=== PATIENT | male | born 1995 | race Hispanic/Latino ===

== ENCOUNTER 2022-11-30 00:02 | Emergency (ER) | payer SELFPAY ==
--- OUTSIDE RECORDS SUMMARY | 2022-11-30 00:06 | XMS REPORT | Continuity of Care Document ---
:1995 Author Organization [facility] t Address [address] [place] [address] [place] [id number] Care Team Providers Name Role Phone Only, Adc Test Attending Clinician Unavailable Dez Root MD Attending Clinician DEZ ROOT Attending Clinician Unavailable Doctor Unassigned, [place] Attending Clinician Unavailable Lab, Pcp Covid Attending Clinician Unavailable Payers Payer Name Policy Type Policy Number Effective Date Expiration Date S ource Problems This patient has no known problems. Allergies, Adverse Reactions, Alerts Allergy Allergy Status Severity Reaction(s) Onset Inactive Treating Comm ents Source Name Type Date Date Clinician NO KNOWN Drug Active [facility] ALLERGIE Class ity of [facility] Social History Social Habit Start Date Stop Date Quantity Comments [facility] to [facility]2 Not sure [facility] [place] [facility] Smoking Status Start Date Stop Date Source Unknown if ever smoked [facility] Medications This patient has no known medications. Procedures Procedure Date / Time Performed Performing Clinician Sour e ASSIGNMENT OF BENEFITS 2019-12-11 20:28:58 Doctor Unassigned, No [facility] Encounters Start End Encounter Admission Attending Care Care Encounter Source Date/Time Date/Time Type Type Clinicians Facility Department ID 2019-12-11 2019-12-11 Laboratory Only, Adc Test [facility] [id number] Univers 15:29:16 15:44:16 Only [id number] [facility] [id number] [facility] [id number] [address] 2019-12-11 2019-12-11 Outpatient R DEZ ROOT [facility] [id number] Univers 15:15[facility]00 [facility]15[facility] 2019-12-11 2019-12-11 Orders Doctor WILBERT [id number] Univers 00:00:00 00:00:00 Only Unassigned, ANTHONY [id number] [place] [facility] [id number] Forrest fitz [id number] [address] 2019-12-11 2019-12-11 Telephone Lab, Pcp [facility] [id number] Univers 00:00:00 00:00:00 Covid PRIMARY [id number] it y of CARE [id number] Mark BERTRAND [id number] In dical [address] Results This patient has no known results.
[2022-11-30 00:51] LABS: Absolute Lymphocytes (CBC) 3.1 K/uL (0.7-4.9); Hematocrit 45.7 % (39.6-49.0); Lymphocytes % 46.7 % (15.3-44.8); MCV 87.4 fL (80-100); RBC Red Blood Cell Count 5.22 M/uL (4.33-5.43)
[2022-11-30 01:03] LABS: Bilirubin Direct 0.2 mg/dL (0-0.2); Bilirubin Indirect, Calculated 0.8 mg/dL (0.2-0.8); Magnesium 2.1 mg/dL (1.6-2.4); Potassium 3.8 mEq/L (3.5-5.1); Protein, Total 7.5 g/dL (6.4-8.2)
--- NOTE | 2022-11-30 01:14 | ER ---
Nurse's Notes [facility] Name: Jae Mike Age: 27 yrs Sex: Male : 1995 Arrival Date: 11/30/2022 Time: 00:02 Bed 7 Private MD: Diagnosis: Palpitations, anxiety Presentation: 11/30 00:13 Chief complaint: Patient states: I woke up out of a sleep and i was feeling weird, kd3 like my chest was tight and my heart was racing. I tried to get up and take a shower to calm my nerves and it didn't go away. Nothing like this has ever happened before. Coronavirus screen: Vaccine status: Patient reports being unvaccinated. Ebola Screen: No symptoms or risks identified at this time. Initial Sepsis Screen: Does the patient meet any 2 criteria? No. Patient's initial sepsis screen is negative. Does the patient have a suspected source of infection? No. Patient's initial sepsis screen is negative. Risk Assessment: Do you want to hurt yourself or someone else? Patient reports no desire to harm self or others. Onset of symptoms was November 30, 2022. 00:13 Method Of Arrival: Ambulatory kd3 00:13 Acuity: KARRI 3 kd3 Triage Assessment: 00:18 General: Appears uncomfortable, Behavior is cooperative, anxious. Pain: Complains of kd3 pain in chest. Cardiovascular: Patient's skin is warm and dry. Historical: - Allergies: 00:18 No Known Allergies; kd3 - Immunization history:: Adult Immunizations up to date. - Social history:: Smoking status: Reported history of juuling and/or vaping. Screenin:08 [facility] ED Fall Risk Assessment (Adult) History of falling in the last 3 months, ha1 including since admission No falls in past 3 months (0 pts) Confusion or Disorientation No (0 pts) Intoxicated or Sedated No (0 pts) Impaired Gait No (0 pts) Mobility Assist Device Used No (0 pt) Altered Elimination No (0 pt) Score/Fall Risk Level 0 - 2 = Low Risk Oriented to surroundings, Maintained a safe environment, Educated pt \T\ family on fall prevention, incl call for assistance when getting out of bed. Abuse screen: Denies threats or abuse. Denies injuries from another. Nutritional screening: No deficits noted. Tuberculosis screening: No symptoms or risk factors identified. Assessment: 00:07 General: Appears comfortable, Behavior is calm, cooperative. Pain: Complains of pain in ha1 chest Pain does not radiate. Pain currently is 4 out of 10 on a pain scale. Quality of pain is described as pressure, Pain began suddenly. Neuro: Level of Consciousness is awake, alert, obeys commands, Oriented to person, place, time, situation. Neuro:. Cardiovascular: Patient's skin is warm and dry. Cardiovascular: Heart tones S1 S2 present Rhythm is sinus rhythm. Respiratory: Airway is patent Respiratory effort is even, unlabored, Respiratory pattern is regular, symmetrical. GI: No signs and/or symptoms were reported involving the gastrointestinal system. Abdomen is flat, non-distended. Derm: Skin is pink, warm \T\ dry. Musculoskeletal: Circulation, motion, and sensation intact. Range of motion: intact in all extremities. 01:00 Reassessment: Patient and/or family updated on plan of care and expected duration. Pain ha1 level reassessed. Patient is alert, oriented x 3, equal unlabored respirations, skin warm/dry/pink. Patient denies pain at this time. Patient states feeling better. Patient states symptoms have improved. Vital Signs: 00:13 Pulse 84; Resp 20; Temp 97.9(O); Pulse Ox 100% on R/A; Weight 104.33 kg; Height 5 ft. 7 kd3 in. ; 00:19 BP 136 / 84; kd3 01:00 BP 109 / 69; Pulse 80; Resp 16 S; Pulse Ox 100% on R/A; ha1 00:13 Body Mass Index 36.02 (104.33 kg, 170.18 cm) kd3 ED Course: 00:05 Patient arrived in ED. mr 00:07 Jaxson Clay MD is Attending Physician. sp3 00:07 Patient has correct armband on for positive identification. Placed in gown. Bed in low ha1 position. Call light in reach. Side rails up X 1. 00:07 Client placed on continuous cardiac and pulse oximetry monitoring. NIBP monitoring ha1 applied. 00:07 Patient maintains SpO2 saturation greater than 95% on room air. ha1 00:15 Inserted saline lock: 20 gauge in right antecubital area, using aseptic technique. ha1 Blood collected. 00:18 Triage completed. kd3 00:18 Arm band placed on right wrist. kd3 00:19 Amirah Anderson, RN is Primary Nurse. kd3 00:25 XRAY Chest (1 view) In Process Unspecified. EDMS 00:33 Basic Metabolic Panel Sent. ha1 00:33 CBC with Diff Sent. ha1 00:33 LFT's Sent. ha1 00:33 Magnesium Sent. ha1 00:33 Troponin HS Sent. ha1 00:38 Merline Douglas, RN is Primary Nurse. ha1 01:29 No provider procedures requiring assistance completed. IV discontinued, intact, ha1 bleeding controlled, No redness/swelling at site. Pressure dressing applied. 01:31 Provided Education on: follow up with primary care.. ha1 Administered Medications: No medications were administered Medication: 01:31 VIS not applicable for this client. ha1 Outcome: 01:14 Discharge ordered by . sp3 01:30 Discharged to home ambulatory, with family. ha1 01:30 Condition: stable 01:30 Discharge instructions given to patient, family, Instructed on discharge instructions, follow up and referral plans. Demonstrated understanding of instructions, follow-up care. 01:32 Patient left the ED. ha1 Signatures: Dispatcher [employer] [facility] KokoSofia mr ValeVero RN RN lg3 Jaxson Clay MD MD sp3 Amirah Anderson, RN RN kd3 Merline Douglas, POLO RN ha1 Corrections: (The following items were deleted from the chart) 00:20 00:19 BP 136 / 84; lg3 lg3
--- NOTE | 2022-11-30 01:14 | EDPHYS ---
Physician Documentation [facility] Name: Jae Mike Age: 27 yrs Sex: Male : 1995 Arrival Date: 11/30/2022 Time: 00:02 Bed 7 Private MD: ED Physician Jaxson Clay HPI: 11/30 00:20 This 27 yrs old Male presents to ER via Ambulatory with complaints of Chest sp3 Tightness, Shaking. 00:20 27-year-old male with no significant past medical history presents with chief complaint sp3 chest tightness, palpitations and anxiety that awoke him from sleep approximately an hour and a half ago. Patient states he went to bed at 10 PM and awoke with the symptoms a little bit later. He denies prior episodes of similar symptoms, anxiety, any psychiatric illness he is, major stresses in his life, substance intake including caffeine, drugs or alcohol, or any other changes in his lifestyle. He denies headache, neck pain, shortness of breath, back pain, abdominal pain, nausea, vomiting, diarrhea, syncope, near syncope, focal neurodeficit, or any other signs or symptoms on ROS at this time. Symptoms have improved with time but he still feels anxious.. Historical: - Allergies: 00:18 No Known Allergies; kd3 - Immunization history:: Adult Immunizations up to date. - Social history:: Smoking status: Reported history of juuling and/or vaping. ROS: 00:23 Constitutional: Negative for fever, chills, and weight loss, Eyes: Negative for injury, sp3 pain, redness, and discharge, ENT: Negative for injury, pain, and discharge, Neck: Negative for injury, pain, and swelling, Respiratory: Negative for shortness of breath, cough, wheezing, and pleuritic chest pain, Abdomen/GI: Negative for abdominal pain, nausea, vomiting, diarrhea, and constipation, Back: Negative for injury and pain, MS/Extremity: Negative for injury and deformity, Skin: Negative for injury, rash, and discoloration, Neuro: Negative for headache, weakness, numbness, tingling, and seizure, Allergy/Immunology: Negative for hives, rash, and allergies, Endocrine: Negative for neck swelling, polydipsia, polyuria, polyphagia, and marked weight changes, Hematologic/Lymphatic: Negative for swollen nodes, abnormal bleeding, and unusual bruising. 00:23 All other systems are negative. Exam: 00:23 Constitutional: This is a well developed, well nourished patient who is awake, alert, sp3 and in no acute distress. Head/Face: Normocephalic, atraumatic. Eyes: Pupils equal round and reactive to light, extra-ocular motions intact. Lids and lashes normal. Conjunctiva and sclera are non-icteric and not injected. Cornea within normal limits. Periorbital areas with no swelling, redness, or edema. ENT: Nares patent. No nasal discharge, no septal abnormalities noted. External auditory canals are clear. Oropharynx with no redness, swelling, or masses, exudates, or evidence of obstruction, uvula midline. Mucous membranes moist. Neck: Trachea midline, no thyromegaly or masses palpated, and no cervical lymphadenopathy. Supple, full range of motion without nuchal rigidity, or vertebral point tenderness. No Meningismus. Chest/axilla: Normal chest wall appearance and motion. Nontender with no deformity. No lesions are appreciated. Cardiovascular: Regular rate and rhythm with a normal S1 and S2. No gallops, murmurs, or rubs. Normal PMI, no JVD. No pulse deficits. Respiratory: Lungs have equal breath sounds bilaterally, clear to auscultation and percussion. No rales, rhonchi or wheezes noted. No increased work of breathing, no retractions or nasal flaring. Abdomen/GI: Soft, non-tender, with normal bowel sounds. No distension or tympany. No guarding or rebound. No evidence of tenderness throughout. Back: No spinal tenderness. No costovertebral tenderness. Full range of motion. Skin: Warm, dry with normal turgor. Normal color with no rashes, no lesions, and no evidence of cellulitis. MS/ Extremity: Pulses equal, no cyanosis. Neurovascular intact. Full, normal range of motion. Neuro: Awake and alert, GCS 15, oriented to person, place, time, and situation. Cranial nerves II-XII grossly intact. Motor strength 5/5 in all extremities. Sensory grossly intact. Cerebellar exam normal. Normal gait. 00:23 ECG was reviewed by the Attending Physician. EKG demonstrates normal sinus rhythm at 64 bpm with normal intervals, normal QRS, normal axis, normal ST/T-segment's without evidence of acute ischemia. Vital Signs: 00:13 Pulse 84; Resp 20; Temp 97.9(O); Pulse Ox 100% on R/A; Weight 104.33 kg; Height 5 ft. 7 kd3 in. ; 00:19 BP 136 / 84; kd3 01:00 BP 109 / 69; Pulse 80; Resp 16 S; Pulse Ox 100% on R/A; ha1 00:13 Body Mass Index 36.02 (104.33 kg, 170.18 cm) kd3 MDM: 00:13 Patient medically screened. sp3 00:24 Data reviewed: vital signs, nurses notes, lab test result(s), EKG, radiologic studies. sp3 ED course: 27-year-old male with chest palpitations and tightness that awoke him from sleep. Symptoms are somewhat improved. Differential diagnosis includes anxiety, stress reaction, electrolyte abnormality, among others. I am not highly concerned for acute coronary syndrome, pulmonary embolism, thyroid spectrum, adrenergic spectrum, pulmonary embolism, pneumonia, sepsis, pneumothorax, aortic pathology including dissection or aneurysm, or any other critical findings at this time. Will obtain chest x-ray and laboratory values in addition to the EKG and treat conservatively with observation and general reassurance.. 01:13 ED course: Chest x-ray and all laboratory values are normal. Patient is more relaxed. sp3 We will safely discharge him home at this time with diagnosis palpitations/anxiety.. 11/30 00:13 Order name: Basic Metabolic Panel; Complete Time: 01: sp3 11/30 00:13 Order name: CBC with Diff; Complete Time: : sp3 11/30 00:13 Order name: LFT's; Complete Time: : sp3 11/30 00:13 Order name: Magnesium; Complete Time: : sp3 11/30 00:13 Order name: Troponin HS; Complete Time: : sp3 11/30 00:13 Order name: CK; Complete Time: : sp3 11/30 00:13 Order name: XRAY Chest (1 view) sp3 11/30 00:13 Order name: EKG; Complete Time: 00:14 sp3 11/30 00:13 Order name: Cardiac monitoring; Complete Time: 00:18 sp3 11/30 00:13 Order name: EKG - Nurse/Tech; Complete Time: 00:18 sp3 11/30 00:13 Order name: IV Saline Lock; Complete Time: 00:33 sp3 11/30 00:13 Order name: Labs collected and sent; Complete Time: : sp3 11/30 00:13 Order name: O2 Sat Monitoring; Complete Time: 00: sp3 Administered Medications: No medications were administered Disposition Summary: 11/30/22 01:14 Discharge Ordered Location: Home sp3 Condition: Stable sp3 Diagnosis - Palpitations, anxiety sp3 Followup: sp3 - With: Private Physician - When: Upon discharge from the Emergency Department - Reason: If symptoms return Discharge Instructions: - Discharge Summary Sheet sp3 - Palpitations sp3 Forms: - Medication Reconciliation Form sp3 - Thank You Letter sp3 - Antibiotic Education sp3 - Prescription Opioid Use sp3 - Patient Portal Instructions sp3 Signatures: Dispatcher [employer] Jaxson Sousa MD MD sp3 Amirah Anderson RN RN kd3
[2022-11-30 01:58] VITALS: TEMP 97.9; O2SAT 100
[2022-11-30 02:01] VITALS: BP 109/69
--- NOTE | 2022-11-30 13:10 | RAD REPORT ---
EXAM DESCRIPTION: CHEST PAIN. COMPARISON: None. TECHNIQUE: Single view AP chest radiograph(s). FINDINGS: The lungs are clear. No pulmonary infiltrate or edema identified. No pleural effusion. N o pneumothorax. Nonenlarged cardiomediastinal silhouette. No significant osseous abnormality. IMPRESSION: No acute cardiopulmonary abnormality identified by radiograph. Electronically signed by: Monet Frecnh MD 11/30/2022 12:35 AM CDT Due to temporary technical issues with the PACS/Fluency reporting system, reports are being signed by the in house radiologists without review as a courtesy to insure prompt reporting. The interpreting radiologist is fully responsible for the content of the report.
--- NOTE | 2022-11-30 13:16 | EKG ---
Test Date: 2022-11-30 Test Time: 00:14:54 Ostomy Nurse: ANISH MEASUREMENT RESULTS: Intervals: Rate: 64 SD: 180 QRSD: 98 QT: 360 QTc: 371 Maxwell: P: 45 SD: 180 QRS: 85 T: 26 INTERPRETIVE STATEMENTS: Normal sinus rhythm Normal ECG No previous ECG available for comparison Electronically Signed On 11-30-22 13:15:06 CDT by Gerard Ford
== END 2022-11-30 01:32 | disposition home or self-care (01) ==
LOC: ER 00:02
DX: R00.2 Palpitations (principal); F41.9 Anxiety disorder, unspecified
CPT/HCPCS: 36415; 71045; 80048; 80076; 82550; 83735; 84484; 85025; 93005; 99284

== ENCOUNTER 2023-12-28 09:19 | Emergency (ER) | payer SELFPAY ==
[2023-12-28] MEDS ORDERED: NA CHLORIDE 0.9% 1,000 ML ONE (09:41)
[2023-12-28 09:48] LABS: Absolute Basophils 0.1 K/uL (0-0.5); Absolute Eosinophils 0.1 K/uL (0-0.5); Absolute Monocytes 0.4 K/uL (0.1-1.3); Basophils % 1.1 % (0-1.3); Eosinophils % 1.8 % (0-4.4); Hematocrit 45.8 % (39.6-49.0); Lymphocytes % 35.6 % (15.3-44.8); MCH 30.4 pg (27.0-35.0); MCHC 34.9 g/dL (32.0-36.0); Monocytes % 7.5 % (3.3-12.3); Nucleated Red Blood Cells % 0.1 % (0-0); Platelets 231 thou/uL (152-406); RBC Red Blood Cell Count 5.26 M/uL (4.33-5.43); Red Cell Distribution Width 12.8 % (12.1-15.2)
[2023-12-28 10:03] LABS: Albumin 4.1 g/dL (3.4-5.0); Albumin/Globulin Ratio 1.2 (1.1-1.8); Anion Gap 6.9 mEq/L (5.0-15.0); Bilirubin Total 0.7 mg/dL (0.2-1.0); Globulin 3.3 g/dL (2.3-3.5); Potassium 3.9 mEq/L (3.5-5.1); Protein, Total 7.4 g/dL (6.4-8.2); Troponin High Sensitivity 3.5 pg/mL (<58.9)
--- NOTE | 2023-12-28 10:17 | RAD REPORT ---
EXAM DESCRIPTION: Janny Single View12/28/2023 10:10 am CLINICAL HISTORY: cough COMPARISON: 2022 FINDINGS: The lungs appear clear of acute infiltrate. The heart is normal size IMPRESSION: No acute abnormalities displayed
--- NOTE | 2023-12-28 10:51 | ER ---
Nurse's Notes [facility] Name: Jae Mike Age: 28 yrs Sex: Male : 1995 Arrival Date: 12/28/2023 Time: 09:19 Bed 5 Private MD: Diagnosis: Palpitations;Dizziness and giddiness;Heat exhaustion, unspecified Presentation: 12/27 09:33 Chief complaint: Patient states: was working outside cutting trees felt a chill all iw over his body, + chills, headache to left adventism. Coronavirus screen: At this time, the client does not indicate any symptoms associated with coronavirus-19. Ebola Screen: No symptoms or risks identified at this time. Initial Sepsis Screen: Does the patient meet any 2 criteria? No. Patient's initial sepsis screen is negative. Does the patient have a suspected source of infection? No. Patient's initial sepsis screen is negative. Risk Assessment: Do you want to hurt yourself or someone else? Patient reports no desire to harm self or others. Onset of symptoms was December 28, 2023. 09:33 Method Of Arrival: Ambulatory iw 09:33 Acuity: KARRI 3 iw Historical: - Allergies: 09:35 No Known Allergies; iw - Home Meds: 09:35 None [Active]; iw - PMHx: 09:35 Anxiety; iw - PSHx: 09:35 None; iw - Immunization history:: Adult Immunizations not up to date. - Infectious Disease History:: Denies. - Social history:: Smoking status: Reported history of juuling and/or vaping. - Family history:: not pertinent. Screenin:30 [facility] ED Fall Risk Assessment (Adult) History of falling in the last 3 months, rs5 including since admission No falls in past 3 months (0 pts) Confusion or Disorientation No (0 pts) Intoxicated or Sedated No (0 pts) Impaired Gait No (0 pts) Mobility Assist Device Used No (0 pt) Altered Elimination No (0 pt) Score/Fall Risk Level 0 - 2 = Low Risk Oriented to surroundings, Maintained a safe environment. Abuse screen: Denies threats or abuse. Nutritional screening: No deficits noted. Tuberculosis screening: No symptoms or risk factors identified. Assessment: 09:30 General: Appears in no apparent distress. uncomfortable, Behavior is cooperative, rs5 anxious. Pain: Complains of pain in head Pain currently is 3 out of 10 on a pain scale. Quality of pain is described as aching, Is continuous. Neuro: Level of Consciousness is awake, alert, obeys commands, Oriented to person, place, time, situation. Cardiovascular: Patient's skin is warm and dry. Respiratory: Airway is patent Respiratory effort is even, unlabored, Respiratory pattern is regular, symmetrical. GI: Abdomen is round non-distended, Abd is soft and non tender X 4 quads. : No signs and/or symptoms were reported regarding the genitourinary system. EENT: Denies blurred vision. Derm: Skin is intact, Skin is pink, warm \T\ dry. Musculoskeletal: Range of motion: intact in all extremities. 10:49 Reassessment: crackers and juice provided to pt for PO challenge per MD orders . rs5 10:58 Reassessment: to bedside for orthostatics . rs5 11:05 Reassessment: pt consumed crackers and juice provided, denies nausea/vomiting/ pain. rs5 Vital Signs: 09:33 BP 123 / 70; Pulse 68; Resp 16; Pulse Ox 98% on R/A; Weight 104.33 kg; Height 5 ft. 8 iw in. ; Pain 4/10; 09:49 BP 128 / 74; Pulse 73; Resp 17; Temp 97.8(O); Pulse Ox 98% on R/A; rs5 10:54 BP 114 / 72 Supine; Pulse 70; rs5 10:56 BP 116 / 74 Sitting; Pulse 73; rs5 10:58 BP 113 / 69 Standing; Pulse 75; rs5 09:33 Body Mass Index 34.97 (104.33 kg, 172.72 cm) iw 09:33 Pain Scale: Adult iw ED Course: 09:22 Patient arrived in ED. mr 09:22 Jose Antonio Muniz MD is Attending Physician. charli 09:30 Anthony Ordaz, RN is Primary Nurse. rs5 09:30 Patient has correct armband on for positive identification. Placed in gown. Bed in low rs5 position. Call light in reach. Side rails up X2. 09:35 Triage completed. iw 09:35 Arm band placed on. iw 09:41 Inserted saline lock: 20 gauge in right antecubital area, using aseptic technique. rs5 Blood collected. Flushed with 10 mL NS. 09:41 No provider procedures requiring assistance completed. rs5 09:46 EKG done, by ED staff, reviewed by Jose Antonio Muniz MD. cc6 10:12 Chest Single View XRAY In Process Unspecified. EDMS 11:06 IV discontinued, intact, bleeding controlled, No redness/swelling at site. Pressure rs5 dressing applied. Administered Medications: 09:45 Drug: NS 0.9% IV 1000 ml IV at 1 bolus Per protocol; 1000 mL bolus Route: IV; Rate: 1 rs5 bolus; Site: right antecubital; 11:00 Follow up: Response: No adverse reaction; IV Status: Completed infusion; IV Intake: rs5 1000ml Medication: 09:49 VIS not applicable for this client. rs5 Intake: 11:00 IV: 1000ml; Total: 1000ml. rs5 Outcome: 10:50 Discharge ordered by . charli 11:06 Discharged to home ambulatory, rs5 11:06 Condition: stable rs5 11:06 Discharge instructions given to patient, family, Instructed on discharge instructions, follow up and referral plans. 11:07 Patient left the ED. rs5 Signatures: Dispatcher [employer] EDIL Jose Antonio Muniz MD MD cha Rivera, Mary, Reg Reg mr Brit Gonzales RN POLO Anthony Ordaz RN RN rs5 Maru Delarosa, POLO RN cc6 Corrections: (The following items were deleted from the chart) 13:45 09:49 BP 128 / 74; Pulse 73bpm; Resp 17bpm; Pulse Ox 98% RA; rs5 rs5
--- NOTE | 2023-12-28 10:51 | EDPHYS ---
Physician Documentation [facility] Name: Jae Mike Age: 28 yrs Sex: Male : 1995 Arrival Date: 12/28/2023 Time: 09:19 Bed 5 Private MD: ED Physician Jose Antonio Muniz HPI: 12/27 10:44 This 28 yrs old Male presents to ER via Ambulatory with complaints of Fast charli heart rate, Dizziness, Vision Problem, Numbness. 10:44 The patient presents with dizziness, generalized weakness. Onset: The symptoms/episode charli began/occurred just prior to arrival. Context: occurred while the patient was. Modifying factors: The symptoms are alleviated by nothing, the symptoms are aggravated by nothing. Associated signs and symptoms: Pertinent positives: palpitations. Severity of symptoms: At their worst the symptoms were mild in the emergency department the symptoms have resolved and did so just prior to arrival. Patient's baseline: Neuro: alert and fully oriented. The patient has not experienced similar symptoms in the past. Historical: - Allergies: 09:35 No Known Allergies; iw - Home Meds: 09:35 None [Active]; iw - PMHx: 09:35 Anxiety; iw - PSHx: 09:35 None; iw - Immunization history:: Adult Immunizations not up to date. - Infectious Disease History:: Denies. - Social history:: Smoking status: Reported history of juuling and/or vaping. - Family history:: not pertinent. ROS: 10:44 Constitutional: Negative for fever, chills, and weight loss, Eyes: Negative for injury, charli pain, redness, and discharge, ENT: Negative for injury, pain, and discharge, Neck: Negative for injury, pain, and swelling, Cardiovascular: Negative for chest pain, palpitations, and edema, Respiratory: Negative for shortness of breath, cough, wheezing, and pleuritic chest pain, Abdomen/GI: Negative for abdominal pain, nausea, vomiting, diarrhea, and constipation, Back: Negative for injury and pain, : Negative for injury, bleeding, discharge, and swelling, MS/Extremity: Negative for injury and deformity, Skin: Negative for injury, rash, and discoloration, Neuro: Negative for headache, weakness, numbness, tingling, and seizure, Psych: Negative for depression, anxiety, suicide ideation, homicidal ideation, and hallucinations, Allergy/Immunology: Negative for hives, rash, and allergies, Endocrine: Negative for neck swelling, polydipsia, polyuria, polyphagia, and marked weight changes, Exam: 10:44 Constitutional: This is a well developed, well nourished patient who is awake, alert, charli and in no acute distress. Head/Face: Normocephalic, atraumatic. Eyes: Pupils equal round and reactive to light, extra-ocular motions intact. Lids and lashes normal. Conjunctiva and sclera are non-icteric and not injected. Cornea within normal limits. Periorbital areas with no swelling, redness, or edema. ENT: Nares patent. No nasal discharge, no septal abnormalities noted. Tympanic membranes are normal and external auditory canals are clear. Oropharynx with no redness, swelling, or masses, exudates, or evidence of obstruction, uvula midline. Mucous membranes moist. Neck: Trachea midline, no thyromegaly or masses palpated, and no cervical lymphadenopathy. Supple, full range of motion without nuchal rigidity, or vertebral point tenderness. No Meningismus. Chest/axilla: Normal chest wall appearance and motion. Nontender with no deformity. No lesions are appreciated. Cardiovascular: Regular rate and rhythm with a normal S1 and S2. No gallops, murmurs, or rubs. Normal PMI, no JVD. No pulse deficits. Respiratory: Lungs have equal breath sounds bilaterally, clear to auscultation and percussion. No rales, rhonchi or wheezes noted. No increased work of breathing, no retractions or nasal flaring. Abdomen/GI: Soft, non-tender, with normal bowel sounds. No distension or tympany. No guarding or rebound. No evidence of tenderness throughout. Back: No spinal tenderness. No costovertebral tenderness. Full range of motion. Male : Normal genitalia with no discharge or lesions. Skin: Warm, dry with normal turgor. Normal color with no rashes, no lesions, and no evidence of cellulitis. MS/ Extremity: Pulses equal, no cyanosis. Neurovascular intact. Full, normal range of motion. Neuro: Awake and alert, GCS 15, oriented to person, place, time, and situation. Cranial nerves II-XII grossly intact. Motor strength 5/5 in all extremities. Sensory grossly intact. Cerebellar exam normal. Normal gait. Psych: Awake, alert, with orientation to person, place and time. Behavior, mood, and affect are within normal limits. 10:44 ECG was reviewed by the Attending Physician. Vital Signs: 09:33 BP 123 / 70; Pulse 68; Resp 16; Pulse Ox 98% on R/A; Weight 104.33 kg; Height 5 ft. 8 iw in. ; Pain 4/10; 09:49 BP 128 / 74; Pulse 73; Resp 17; Temp 97.8(O); Pulse Ox 98% on R/A; rs5 10:54 BP 114 / 72 Supine; Pulse 70; rs5 10:56 BP 116 / 74 Sitting; Pulse 73; rs5 10:58 BP 113 / 69 Standing; Pulse 75; rs5 09:33 Body Mass Index 34.97 (104.33 kg, 172.72 cm) iw 09:33 Pain Scale: Adult iw MDM: 09:22 Patient medically screened. charli 10:48 Differential diagnosis: cardiac arrhythmia, generalized weakness, idiopathic dizziness, charli near-syncope. Data reviewed: vital signs, nurses notes, lab test result(s), EKG, radiologic studies. Consideration of Admission/Observation Escalation of care including admission/observation considered. I considered the following discharge prescriptions or medication management in the emergency department Medications were administered in the Emergency Department. See MAR. Independent interpretation of the following test(s) in the Emergency Department EKG: See my EKG interpretation above. Test considered but Not performed: CT: no ct head. Historians other than the Patient: Spouse/Significant Other: sig other well informed. Care significantly affected by the following chronic conditions: anxiety. Counseling: I had a detailed discussion with the patient and/or guardian regarding the historical points, exam findings, and any diagnostic results supporting the discharge/admit diagnosis, lab results, radiology results, the need for outpatient follow up, for definitive care, a family practitioner. 12/27 09:35 Order name: CBC with Diff; Complete Time: 10:43 [facility] 12/27 09:35 Order name: Comprehensive Metabolic Panel; Complete Time: 10:43 charli 12/27 09:35 Order name: Troponin HS; Complete Time: 10:43 12/27 09:35 Order name: CPK; Complete Time: 10:43 12/27 09:35 Order name: Chest Single View XRAY; Complete Time: 10:43 [facility] 12/27 09:35 Order name: EKG; Complete Time: 09:36 [facility] 12/27 09:35 Order name: EKG - Nurse/Tech; Complete Time: 09:40 [facility] 12/27 10:51 Order name: PO challenge; Complete Time: 11:03 [facility] 12/27 10:51 Order name: Orthostatics; Complete Time: 11:03 [facility] EC:44 Rate is 63 beats/min. Rhythm is regular. QRS [place] is Normal. NC interval is normal. QRS charli interval is normal. QT interval is normal. No Q waves. T waves are Normal. No ST changes noted. Clinical impression: NSR w/ Non-specific ST/T Changes and No evidence of ischemia. Interpreted by me. Reviewed by me. Administered Medications: 09:45 Drug: NS 0.9% IV 1000 ml IV at 1 bolus Per protocol; 1000 mL bolus Route: IV; Rate: 1 rs5 bolus; Site: right antecubital; 11:00 Follow up: Response: No adverse reaction; IV Status: Completed infusion; IV Intake: rs5 1000ml Disposition Summary: 12/28/23 10:50 Discharge Ordered Notes: Location: Home charli Problem: new charli Symptoms: have improved charli Condition: Stable charli Diagnosis - Palpitations charli - Dizziness and giddiness charli - Heat exhaustion, unspecified charli Followup: charli - With: Private Physician - When: 2 - 3 days - Reason: Recheck today's complaints, Continuance of care, Re-evaluation by your physician Discharge Instructions: - Discharge Summary Sheet charli - Dizziness charli - Palpitations charli - Heat Exhaustion charli - Palpitations, [id number] charli - Dizziness, [id number] charli - Preventing Heat Exhaustion, Adult charli Forms: - Medication Reconciliation Form charli - Antibiotic Education charli - Prescription Opioid Use charli - Patient Portal Instructions charli - Leadership Thank You Letter charli Signatures: Dispatcher [employer] EDJose Antonio Guadarrama MD MD cha Williams, Irene RN RN Anthony Cruz RN RN rs5 Corrections: (The following items were deleted from the chart) 09:36 09:36 Chest Single View+RAD.RAD.BRZ ordered. EDMS EDMS
[2023-12-28 11:24] VITALS: O2SAT 98
[2023-12-28 11:30] VITALS: BP 113/69
== END 2023-12-28 11:07 | disposition home or self-care (01) ==
LOC: ER 09:19
DX: T67.5XXA Heat exhaustion, unspecified, initial encounter (principal); X30.XXXA Exposure to excessive natural heat, initial encounter; Y93.H2 Activity, gardening and landscaping; R00.2 Palpitations; R42 Dizziness and giddiness; F17.290 Nicotine dependence, other tobacco product, uncomplicated
CPT/HCPCS: 36415; 71045; 80053; 82550; 84484; 85025; 93005; 96360; 99284; J7030

== ENCOUNTER 2024-09-10 23:58 | Emergency (ER) | payer OTHER, SELFPAY ==
[2024-09-11 00:59] LABS: PT Prothrombin Time 12.3 SECONDS (10-13.0); Protime INR 1.08
[2024-09-11 01:01] LABS: Absolute Basophils 0.1 K/uL (0-0.5); Absolute Eosinophils 0.1 K/uL (0-0.5); Absolute Lymphocytes (CBC) 2.4 K/uL (0.7-4.9); Absolute Monocytes 0.5 K/uL (0.1-1.3); Basophils % 0.9 % (0-1.3); Hematocrit 46.9 % (39.6-49.0); Hemoglobin 16.8 g/dL (13.6-17.9); Lymphocytes % 39.8 % (15.3-44.8); MCH 30.7 pg (27.0-35.0); MCHC 35.9 g/dL (32.0-36.0); MCV 85.7 fL (80-100); MPV 8.7 fL (7.6-11.3); Monocytes % 7.5 % (3.3-12.3); Neutrophils % 49.8 % (41.7-73.7); Nucleated Red Blood Cells % 0.3 % (0-0); Platelets 206 thou/uL (152-406); RBC Red Blood Cell Count 5.47 M/uL (4.33-5.43); Red Cell Distribution Width 12.8 % (12.1-15.2)
[2024-09-11 01:38] LABS: Albumin/Globulin Ratio 1.3 (1.1-1.8); Anion Gap 7.3 mEq/L (5.0-15.0); Bilirubin Direct 0.3 mg/dL (0-0.2); Bilirubin Indirect, Calculated 0.8 mg/dL (0.2-0.8); Bilirubin Total 1.1 mg/dL (0.2-1.0); Globulin 3.1 g/dL (2.3-3.5); Magnesium 2.1 mg/dL (1.6-2.4); Potassium 3.3 mEq/L (3.5-5.1); Protein, Total 7.1 g/dL (6.4-8.2); Thyroid Stimulating Hormone 2.86 uIU/mL (0.358-3.740); Troponin High Sensitivity 6.2 pg/mL (<58.9)
--- NOTE | 2024-09-11 02:19 | ER ---
Nurse's Notes [facility] Name: Jae Mike Age: 29 yrs Sex: Male : 1995 Arrival Date: 09/10/2024 Time: 23:58 Bed 5 Private MD: Diagnosis: Chest pain, unspecified;Noncardiac chest pain Presentation: 09/11 00:36 Chief complaint: Patient states: c/o intermittent chest tightness and palpitations, L al5 arm, and L leg numbness and tingling starting at [id number] this morning. Coronavirus screen: At this time, the client does not indicate any symptoms associated with coronavirus-19. Ebola Screen: No symptoms or risks identified at this time. Initial Sepsis Screen: Does the patient meet any 2 criteria? No. Patient's initial sepsis screen is negative. Does the patient have a suspected source of infection? No. Patient's initial sepsis screen is negative. Risk Assessment: Do you want to hurt yourself or someone else? Patient reports no desire to harm self or others. Onset of symptoms was September 11, 2024. 00:36 Method Of Arrival: Ambulatory al5 00:36 Acuity: KARRI 2 al5 Triage Assessment: 00:35 General: Appears in no apparent distress. comfortable, Behavior is calm, cooperative. al5 Pain: Denies pain. EENT: No signs and/or symptoms were reported regarding the EENT system. Neuro: Level of Consciousness is awake, alert, obeys commands, Oriented to person, place, time, situation. Cardiovascular: Reports intermittent chest tightness Capillary refill < 3 seconds Patient's skin is warm and dry. Rhythm is sinus rhythm. Respiratory: Airway is patent Respiratory effort is even, unlabored, Respiratory pattern is regular, symmetrical. GI: No signs and/or symptoms were reported involving the gastrointestinal system. : No signs and/or symptoms were reported regarding the genitourinary system. Derm: Skin is intact, is healthy with good turgor, Skin is pink, warm \T\ dry. normal. Musculoskeletal: No signs and/or symptoms reported regarding the musculoskeletal system. Historical: - Allergies: 00:35 No Known Allergies; al5 - PMHx: 00:35 Anxiety; al5 - PSHx: 00:35 None; al5 - Immunization history:: Adult Immunizations up to date, Client reports having NOT received the Covid vaccine. Flu vaccine is not up to date. - Infectious Disease History:: Denies. - Social history:: Smoking status: Reported history of juuling and/or vaping. - Family history:: not pertinent. Screenin:39 [facility] ED Fall Risk Assessment (Adult) History of falling in the last 3 months, al5 including since admission No falls in past 3 months (0 pts) Confusion or Disorientation No (0 pts) Intoxicated or Sedated No (0 pts) Impaired Gait No (0 pts) Mobility Assist Device Used No (0 pt) Altered Elimination No (0 pt) Score/Fall Risk Level 0 - 2 = Low Risk Oriented to surroundings, Maintained a safe environment, Hourly rounding (assess needs \T\ fall precautionary measures) done. Abuse screen: Denies threats or abuse. Denies injuries from another. Nutritional screening: No deficits noted. Tuberculosis screening: No symptoms or risk factors identified. Assessment: 00:39 Reassessment: see triage assessment. Pain: Pain does not radiate. Pain began today. al5 02:27 Reassessment: Patient appears in no apparent distress at this time. Patient and/or al5 family updated on plan of care and expected duration. Pain level reassessed. Patient is alert, oriented x 3, equal unlabored respirations, skin warm/dry/pink. Patient states feeling better. Patient states symptoms have improved. Vital Signs: 00:36 BP 132 / 77; Pulse 64; Resp 18; Temp 97.8; Pulse Ox 96% on R/A; Weight 106.14 kg; al5 Height 5 ft. 8 in. ; 01:00 BP 109 / 66; Pulse 60; Resp 17; Pulse Ox 96% ; al5 01:00 BP 109 / 66; Pulse 61; Resp 17; Pulse Ox 96% ; al5 01:30 BP 116 / 67; Pulse 56; Resp 17; Pulse Ox 94% ; al5 02:00 BP 108 / 62; Pulse 63; Resp 14; Pulse Ox 95% ; al5 00:36 Body Mass Index 35.58 (106.14 kg, 172.72 cm) al5 [place] Coma Score: 02:08 Eye Response: spontaneous(4). Motor Response: obeys commands(6). Verbal Response: sp4 oriented(5). Total: 15. ED Course: 00:00 Patient arrived in ED. jj6 00:05 Joe Kim MD is Attending Physician. sp4 00:30 EKG done, by agriculture laboratory technician. reviewed by Joe Kim MD. af3 00:35 Marilee Fontaine, RN is Primary Nurse. al5 00:36 Arm band placed on right wrist. Patient placed in the treatment room, in view of staff al5 members, on manager cardiac, on pulse oximetry. 00:38 Triage completed. al5 00:38 No provider procedures requiring assistance completed. Patient maintains SpO2 al5 saturation greater than 95% on room air. 00:38 Patient has correct armband on for positive identification. Bed in low position. Call al5 light in reach. Side rails up X2. Provided Education on: plan of care. Client placed on continuous cardiac and pulse oximetry monitoring. NIBP monitoring applied. playground monitor on. Pulse ox on. 00:39 Basic Metabolic Panel Sent. vk 00:39 CBC with Diff Sent. vk 00:39 LFT's Sent. vk 00:40 Magnesium Sent. vk 00:40 NT PRO-BNP Sent. vk 00:40 PT-INR Sent. vk 00:40 Troponin HS Sent. vk 00:40 Initial lab(s) drawn, by me, sent to lab. Inserted saline lock: 20 gauge in right vk antecubital area, using aseptic technique. Blood collected. Flushed with 10 mL NS. 00:59 XRAY Chest (1 view) In Process Unspecified. EDMS 02:17 Gerard Ford MD is Referral Physician. sp4 02:19 IV discontinued, intact, bleeding controlled, No redness/swelling at site. Pressure al5 dressing applied. Administered Medications: No medications were administered Medication: 00:39 VIS not applicable for this client. al5 Outcome: 02:18 Discharge ordered by . sp4 02:20 Discharged to home ambulatory, al5 02:20 Condition: good 02:20 Discharge instructions given to patient, Instructed on discharge instructions, follow up and referral plans. Demonstrated understanding of instructions, follow-up care, 02:37 Patient left the ED. al5 Signatures: Dispatcher [employer] EDGA Geovanna Lamas jj6 Joe Kim MD MD sp4 Karin Hopper vk Marilee Fontaine, RN RN al5 Kerrie Ruiz af3 Corrections: (The following items were deleted from the chart) 00:45 00:40 T4 FREE+C.LAB.KARISZ drawn and sent. vk EDMS 00:45 00:40 THYROID STIMULAT HORMONE+C.LAB.BRZ drawn and sent. vk EDMS
--- NOTE | 2024-09-11 02:19 | EDPHYS ---
Physician Documentation [facility] Name: Jae Mike Age: 29 yrs Sex: Male : 1995 Arrival Date: 09/10/2024 Time: 23:58 Bed 5 Private MD: ED Physician Joe Kim HPI: 09/11 00:05 This 29 yrs old Male presents to ER via Unassigned with complaints of Chest sp4 Tightness. 02:08 29-year-old male presents with acute onset of chest tightness at work in the afternoon..sp4 Historical: - Allergies: 00:35 No Known Allergies; al5 - PMHx: 00:35 Anxiety; al5 - PSHx: 00:35 None; al5 - Immunization history:: Adult Immunizations up to date, Client reports having NOT received the Covid vaccine. Flu vaccine is not up to date. - Infectious Disease History:: Denies. - Social history:: Smoking status: Reported history of juuling and/or vaping. - Family history:: not pertinent. ROS: 02:08 Constitutional: Negative for fever, chills, and weight loss, positive for chest sp4 tightness 02:08 All other systems are negative, Exam: 02:08 Constitutional: This is a well developed, well nourished patient who is awake, alert, sp4 and in no acute distress. Head/Face: Normocephalic, atraumatic. Eyes: Pupils equal round and reactive to light, extra-ocular motions intact. Lids and lashes normal. Conjunctiva and sclera are not injected. Cornea within normal limits. Periorbital areas with no swelling, redness, or edema. ENT: Nares patent. No nasal discharge, no septal abnormalities noted. Tympanic membranes are normal and external auditory canals are clear. Oropharynx with no redness, swelling, or masses, exudates, or evidence of obstruction, uvula midline. Mucous membranes moist. Neck: Trachea midline, no thyromegaly or masses palpated, and no cervical lymphadenopathy. Supple, full range of motion without nuchal rigidity, or vertebral point tenderness. Chest/axilla: Normal chest wall appearance and motion. Nontender with no deformity. No lesions are appreciated. Cardiovascular: Regular rate and rhythm with a normal S1 and S2. No gallops, murmurs, or rubs. Normal PMI, no JVD. No pulse deficits. Respiratory: Lungs have equal breath sounds bilaterally, clear to auscultation and percussion. No rales, rhonchi or wheezes noted. No increased work of breathing, no retractions or nasal flaring. Abdomen/GI: Soft, with normal bowel sounds. No distension or tympany. No guarding or rebound. No evidence of tenderness throughout. Back: No spinal tenderness. No costovertebral tenderness. Skin: Warm, dry with normal turgor. Normal color with no rashes, no lesions, and no evidence of cellulitis. MS/ Extremity: Pulses equal, no cyanosis. Neurovascular intact. Full, normal range of motion. Neuro: Awake and alert, GCS 15, oriented to person, place, time, and situation. Cranial nerves II-XII grossly intact. Motor strength 5/5 in all extremities. Sensory grossly intact. Psych: Awake, alert, with orientation to person, place and time. Behavior, mood, and affect are within normal limits 02:08 ECG was reviewed by the Attending Physician. EKG at 0025 Vital Signs: 00:36 BP 132 / 77; Pulse 64; Resp 18; Temp 97.8; Pulse Ox 96% on R/A; Weight 106.14 kg; al5 Height 5 ft. 8 in. ; 01:00 BP 109 / 66; Pulse 60; Resp 17; Pulse Ox 96% ; al5 01:00 BP 109 / 66; Pulse 61; Resp 17; Pulse Ox 96% ; al5 01:30 BP 116 / 67; Pulse 56; Resp 17; Pulse Ox 94% ; al5 02:00 BP 108 / 62; Pulse 63; Resp 14; Pulse Ox 95% ; al5 00:36 Body Mass Index 35.58 (106.14 kg, 172.72 cm) al5 [place] Coma Score: 02:08 Eye Response: spontaneous(4). Motor Response: obeys commands(6). Verbal Response: sp4 oriented(5). Total: 15. MDM: 00:13 Medical Screening Exam initiated sp4 02:04 ED course: EXAM: XR Chest, 1 View CLINICAL HISTORY: The patient is 29 years old and is sp4 Male; CHEST PAIN TECHNIQUE: Frontal view of the chest. COMPARISON: No relevant prior studies available. FINDINGS: Lungs: Unremarkable. No consolidation. Pleural space: Unremarkable. No pneumothorax. Heart: Unremarkable. Mediastinum: Unremarkable. Normal mediastinal contour. Bones/joints: No acute findings. IMPRESSION: No acute findings in the chest. 02:14 Differential diagnosis: acute myocardial infarction, acute pericarditis, anxiety, chest sp4 wall pain, esophagitis, gastritis. HEART Score: History: Slightly Suspicious (0), ECG: Normal (0), Age: < or = 45 years (0), Risk Factors: No Risk Factors Known (0), Troponin: < or = 1 x Normal Limit (0), Total Score = 0. Data reviewed: vital signs, nurses notes, old medical records, lab test result(s), EKG, radiologic studies, plain films. 02:24 ED course: Patient stable for discharge home. Patient was advised in case of persistent sp4 chest pain to follow-up with prison keeper on outpatient basis for outpatient stress test.. 09/11 00:06 Order name: Basic Metabolic Panel; Complete Time: 02:04 sp4 09/11 00:06 Order name: CBC with Diff; Complete Time: 01:33 sp4 09/11 00:06 Order name: LFT's; Complete Time: 02:04 sp4 09/11 00:06 Order name: Magnesium; Complete Time: 02:04 sp4 09/11 00:06 Order name: NT PRO-BNP; Complete Time: 02:04 sp4 09/11 00:06 Order name: PT-INR; Complete Time: 01:33 sp4 09/11 00:06 Order name: Troponin HS; Complete Time: 02:04 sp4 09/11 00:46 Order name: T4 Free; Complete Time: 02:04 EDMS 09/11 00:46 Order name: Thyroid Stimulating Hormone; Complete Time: 02:04 EDMS 09/11 00:06 Order name: XRAY Chest (1 view) sp4 09/11 00:06 Order name: Cardiac monitoring; Complete Time: 00:30 sp4 09/11 00:06 Order name: EKG - Nurse/Tech; Complete Time: 00:30 sp4 09/11 00:06 Order name: IV Saline Lock; Complete Time: 00:39 sp4 09/11 00:06 Order name: Labs collected and sent; Complete Time: 00:39 sp4 09/11 00:06 Order name: O2 Per Protocol; Complete Time: 00:30 sp4 09/11 00:06 Order name: O2 Sat Monitoring; Complete Time: :30 sp4 EC: Rate is 69 beats/min. Rhythm is regular, Normal Sinus Rhythm. Left axis deviation sp4 noted. NM interval is normal. QRS interval is normal. QT interval is normal. No Q waves. T waves are Normal. No ST changes noted. Clinical impression: No evidence of ischemia. Interpreted by me. Reviewed by me. Administered Medications: No medications were administered Disposition Summary: 09/11/24 02:18 Discharge Ordered Problem: new sp4 Symptoms: have improved sp4 Condition: Stable sp4 Diagnosis - Chest pain, unspecified sp4 - Noncardiac chest pain sp4 Followup: sp4 - With: Gerard Ford MD - When: 7 - 10 days - Reason: Recheck today's complaints Discharge Instructions: - Discharge Summary Sheet sp4 - Nonspecific Chest Pain, Adult, [id number] sp4 Forms: - Patient Portal Instructions sp4 Signatures: Dispatcher [employer] EDMS Joe Kim MD MD sp4 Marilee Fontaine RN RN al5 Corrections: (The following items were deleted from the chart) 00:07 00:06 BASIC METABOLIC PANEL+C.LAB.BRZ ordered. EDMS EDMS 00:07 00:06 CBC+H.LAB.BRZ ordered. EDMS EDMS 00:07 00:06 HEPATIC FUNCTION+C.LAB.BRZ ordered. EDMS EDMS 00:07 00:06 MAGNESIUM+C.LAB.BRZ ordered. EDMS EDMS 00:07 00:06 PROBNP+C.LAB.BRZ ordered. EDMS EDMS 00:07 00:06 PROTIME (+INR)+COAG.LAB.BRZ ordered. EDMS EDMS 00:07 00:06 Troponin High Sensitivity+C.LAB.BRZ ordered. EDMS EDMS 00:07 00:07 URINE DRUG SCREEN+UC.LAB.BRZ ordered. EDMS EDMS 00:45 00:37 THYROID STIMULAT HORMONE+C.LAB.BRZ ordered. EDMS EDMS 00:45 00:37 T4 FREE+C.LAB.BRZ ordered. EDMS EDMS
--- NOTE | 2024-09-11 06:00 | RAD REPORT ---
EXAM: XR Chest, 1 View CLINICAL HISTORY: The patient is 29 years old and is Male; CHEST PAIN TECHNIQUE: Frontal view of the chest. COMPARISON: No relevant prior studies available. FINDINGS: Lungs: Unremarkable. No consolidation. Pleural space: Unremarkable. No pneumothorax. Heart: Unremarkable. Mediastinum: Unremarkable. Normal mediastinal contour. Bones/joints: No acute findings. IMPRESSION: No acute findings in the chest. Electronically signed by: Shiva Nieto MD 09/11/2024 01:56 AM CDT 8 Due to temporary technical issues with the PACS/Cabeo reporting system, reports are being luiz d by the in-house radiologist without review as a courtesy to ensure prompt reporting the interpreting radiologist is fully responsible for the content of the report. Transcribed Date/Time: 09/11/2024 6:00 AM
[2024-09-11 10:07] VITALS: TEMP 97.8
[2024-09-11 10:12] VITALS: BP 108/62; O2SAT 95
--- NOTE | 2024-09-11 12:34 | EKG ---
Test Date: 2024-09-11 Test Time: 00:25:23 Electronic Assembly: AF MEASUREMENT RESULTS: Intervals: Rate: 69 MA: 178 QRSD: 106 QT: 360 QTc: 385 [place]: P: 22 MA: 178 QRS: -39 T: 19 INTERPRETIVE STATEMENTS: Normal sinus rhythm Left axis deviation Abnormal ECG Compared to ECG 12/28/2023 09:41:51 Left-axis deviation now present Sinus arrhythmia no longer present Electronically Signed On 09-11-24 12:33:20 CDT by Bird Youssef
== END 2024-09-11 02:37 | disposition home or self-care (01) ==
LOC: ER 23:58
DX: R07.89 Other chest pain (principal); F41.9 Anxiety disorder, unspecified; Z28.310 Unvaccinated for COVID-19
CPT/HCPCS: 36415; 71045; 80048; 80076; 83735; 83880; 84439; 84443; 84484; 85025; 85610; 93005

== ENCOUNTER 2024-09-26 12:59 | Emergency (ER) | payer OTHER ==
[2024-09-26] MEDS ORDERED: NA CHLORIDE 0.9% 1,000 ML ONE (14:38)
[2024-09-26 14:44] LABS: Absolute Eosinophils 0.1 K/uL (0-0.5); Absolute Lymphocytes (CBC) 1.8 K/uL (0.7-4.9); Absolute Monocytes 0.5 K/uL (0.1-1.3); Absolute Neutrophil 4.1 K/uL (1.8-8.0); Basophils % 0.5 % (0-1.3); Eosinophils % 1.2 % (0-4.4); Hemoglobin 17.6 g/dL (13.6-17.9); Lymphocytes % 27.5 % (15.3-44.8); MCH 30.5 pg (27.0-35.0); MCHC 35.2 g/dL (32.0-36.0); MCV 86.7 fL (80-100); MPV 8.7 fL (7.6-11.3); Monocytes % 8.2 % (3.3-12.3); Neutrophils % 62.6 % (41.7-73.7); Platelets 207 thou/uL (152-406); RBC Red Blood Cell Count 5.77 M/uL (4.33-5.43); Red Cell Distribution Width 13.4 % (12.1-15.2)
[2024-09-26 14:48] LABS: Nucleated Red Blood Cells % 0.1 % (0-0)
[2024-09-26 14:52] LABS: PT Prothrombin Time 11.9 SECONDS (10-13.0); Protime INR 1.05
[2024-09-26 15:07] LABS: D-Dimer < 0.215 FEUug/mL (0-0.500)
[2024-09-26 15:13] LABS: Albumin/Globulin Ratio 1.3 (1.1-1.8); Bilirubin Direct 0.3 mg/dL (0-0.2); Bilirubin Indirect, Calculated 0.8 mg/dL (0.2-0.8); Bilirubin Total 1.1 mg/dL (0.2-1.0); Globulin 3.2 g/dL (2.3-3.5); Magnesium 2.1 mg/dL (1.6-2.4); Protein, Total 7.2 g/dL (6.4-8.2); Thyroid Stimulating Hormone 0.823 uIU/mL (0.358-3.740); Troponin High Sensitivity 6.3 pg/mL (<58.9)
--- NOTE | 2024-09-26 15:46 | ER ---
Nurse's Notes [facility] Name: Jae Mike Age: 29 yrs Sex: Male : 1995 Arrival Date: 09/26/2024 Time: 12:59 Bed 2 Private MD: Diagnosis: Dizziness and giddiness;Palpitations Presentation: 09/26 13:13 Chief complaint: Patient states: was moving things around his house and started feeling cm10 dizzy and felt like his heart was racing. no pain. Coronavirus screen: Client denies travel out of the [place] in the last 14 days. Ebola Screen: Patient denies travel to an Ebola-affected area in the 21 days before illness onset. Initial Sepsis Screen: Does the patient meet any 2 criteria? No. Patient's initial sepsis screen is negative. Does the patient have a suspected source of infection? No. Patient's initial sepsis screen is negative. Risk Assessment: Do you want to hurt yourself or someone else? Patient reports no desire to harm self or others. Onset of symptoms was September 26, 2024. 13:13 Method Of Arrival: Ambulatory cm10 13:13 Acuity: KARRI 3 cm10 Triage Assessment: 13:14 General: Appears in no apparent distress. comfortable, Behavior is calm, cooperative. cm10 Pain: Denies pain. Neuro: No deficits noted. Level of Consciousness is awake, alert, obeys commands, Oriented to person, place, time, situation, Appropriate for age Reports dizziness. Cardiovascular: Reports palpitations, Patient's skin is warm and dry. Respiratory: No deficits noted. Airway is patent Respiratory effort is even, unlabored, Respiratory pattern is regular, symmetrical. Historical: - Allergies: 13:14 No Known Allergies; cm10 - Home Meds: 13:14 sertraline oral [Active]; cm10 - PMHx: 13:14 Anxiety; cm10 - Immunization history:: Adult Immunizations unknown. - Infectious Disease History:: Denies. - Social history:: Smoking status: Reported history of juuling and/or vaping. Screenin:30 [facility] ED Fall Risk Assessment (Adult) History of falling in the last 3 months, aa5 including since admission No falls in past 3 months (0 pts) Confusion or Disorientation No (0 pts) Intoxicated or Sedated No (0 pts) Impaired Gait No (0 pts) Mobility Assist Device Used No (0 pt) Altered Elimination No (0 pt) Score/Fall Risk Level 0 - 2 = Low Risk Oriented to surroundings, Maintained a safe environment, Educated pt \T\ family on fall prevention, incl call for assistance when getting out of bed, Assessed \T\ reinforced patient's understanding of fall precautions. Abuse screen: Denies threats or abuse. Nutritional screening: No deficits noted. Tuberculosis screening: No symptoms or risk factors identified. Assessment: 14:30 General: Appears comfortable, Behavior is calm, cooperative. Pain: Denies pain. Neuro: aa5 Level of Consciousness is awake, alert, obeys commands, Oriented to person, place, time, situation, Reports feeling weak, currently denies dizziness but reports episode of dizziness. . Cardiovascular: Reports episode of palpitations that has resolved. Heart tones S1 S2 present Rhythm is regular. Respiratory: Airway is patent Respiratory effort is even, unlabored, Respiratory pattern is regular, symmetrical. GI: No signs and/or symptoms were reported involving the gastrointestinal system. Patient currently denies nausea, vomiting. : No signs and/or symptoms were reported regarding the genitourinary system. EENT: No signs and/or symptoms were reported regarding the EENT system. Derm: Skin is pink, warm \T\ dry. Musculoskeletal: Range of motion: intact in all extremities. 15:54 Reassessment: Patient appears in no apparent distress at this time. Patient and/or ph family updated on plan of care and expected duration. Pain level reassessed. Patient is alert, oriented x 3, equal unlabored respirations, skin warm/dry/pink. Patient states feeling better. Vital Signs: 13:13 BP 128 / 81; Pulse 89; Resp 16; Temp 98.2; Pulse Ox 98% on R/A; Weight 104.78 kg; cm10 Height 5 ft. 8 in. ; Pain 0/10; 15:54 BP 118 / 78; Pulse 87; Resp 18; Temp 98; Pulse Ox 98% on R/A; ph 13:13 Body Mass Index 35.12 (104.78 kg, 172.72 cm) cm10 13:13 Pain Scale: Adult cm10 ED Course: 13:01 Patient arrived in ED. im 13:01 Marily Lyle PA-C is PHCP. sb4 13:01 Jose Antonio Muniz MD is Attending Physician. sb4 13:14 Triage completed. cm10 13:14 Arm band placed on right wrist. Patient placed in waiting room. cm10 13:30 XRAY Chest (1 view) In Process Unspecified. EDMS 14:22 Sameera Silva, RN is Primary Nurse. aa5 14:30 Patient has correct armband on for positive identification. Bed in low position. Call aa5 light in reach. Side rails up X 1. 14:30 Client placed on continuous cardiac and pulse oximetry monitoring. NIBP monitoring aa5 applied. front desk monitor on. Pulse ox on. NIBP on. 14:30 Initial lab(s) drawn, by me, sent to lab. Inserted saline lock: 20 gauge in right aa5 antecubital area, using aseptic technique. Blood collected. Flushed with 10 mL NS. 15:25 No provider procedures requiring assistance completed. aa5 15:50 IV discontinued, intact, bleeding controlled, No redness/swelling at site. Pressure aa5 dressing applied. Administered Medications: 14:42 Not Given (Patient Refused): ativan0.5 mg IVP once aa5 14:46 Drug: NS 0.9% IV 1000 ml IV at 1000 ml once; to be given as a bolus over 60 minutes aa5 Route: IV; Rate: 1000 ml; Site: right antecubital; 15:55 Follow up: Response: No adverse reaction; IV Status: Completed infusion; IV Intake: ph 1000ml Medication: 15:22 VIS not applicable for this client. aa5 Intake: 15:55 IV: 1000ml; Total: 1000ml. ph Outcome: 15:45 Discharge ordered by . sb4 15:50 Discharged to home ambulatory, aa5 15:50 Condition: stable 15:50 Discharge instructions given to patient, Instructed on discharge instructions, follow up and referral plans. Demonstrated understanding of instructions, follow-up care, 15:55 Patient left the ED. ph Signatures: Dispatcher [employer] EDCT Sameera Silva, RN RN aa5 Ethel Montano RN RN ph Marily Lyle, CATE PAAmna sb4 Adele Shirley Clarissa RN RN cm10
--- NOTE | 2024-09-26 15:46 | EDPHYS ---
Physician Documentation [facility] Name: Jae Mike Age: 29 yrs Sex: Male : 1995 Arrival Date: 09/26/2024 Time: 12:59 Bed 2 Private MD: ED Physician Jose Antonio Muniz HPI: 09/26 13:30 This 29 yrs old Male presents to ER via Ambulatory with complaints of General sb4 Weakness, Dizziness. 13:30 Patient states that he was moving furniture in and out of the house when he started to sb4 feel dizzy, heart racing, and very drained of energy. States that he feels a little better but is still experiencing symptoms. States he had a similar episode a few weeks ago but did not feel like this drained. Has not followed up with primary care or cardiology. Only medical history is anxiety. Does report history of vaping. No cardiac history in the family. Historical: - Allergies: 13:14 No Known Allergies; cm10 - Home Meds: 13:14 sertraline oral [Active]; cm10 - PMHx: 13:14 Anxiety; cm10 - Immunization history:: Adult Immunizations unknown. - Infectious Disease History:: Denies. - Social history:: Smoking status: Reported history of juuling and/or vaping. ROS: 13:30 Constitutional: Negative for fever, chills, and weight loss, sb4 13:30 Cardiovascular: Positive for palpitations, 13:30 Neuro: Positive for dizziness, weakness, 13:30 All other systems are negative, Exam: 13:30 Head/Face: Normocephalic, atraumatic. Eyes: Extra-ocular motions intact. Periorbital sb4 areas with no swelling, redness, or edema. ENT: Mucous membranes moist. Cardiovascular: Regular rate and rhythm with a normal S1 and S2. Respiratory: No increased work of breathing, no retractions or nasal flaring. Abdomen/GI: Soft, non-tender, no distension. Skin: Warm, dry with normal turgor. Normal color with no rashes, no lesions, and no evidence of cellulitis. Neuro: Awake and alert, GCS 15, oriented to person, place, time, and situation. Motor strength 5/5 in all extremities. Sensory grossly intact. 13:30 Constitutional: The patient appears alert, awake, anxious, Vital Signs: 13:13 BP 128 / 81; Pulse 89; Resp 16; Temp 98.2; Pulse Ox 98% on R/A; Weight 104.78 kg; cm10 Height 5 ft. 8 in. ; Pain 0/10; 15:54 BP 118 / 78; Pulse 87; Resp 18; Temp 98; Pulse Ox 98% on R/A; ph 13:13 Body Mass Index 35.12 (104.78 kg, 172.72 cm) cm10 13:13 Pain Scale: Adult cm10 MDM: 13:02 Medical Screening Exam initiated sb4 15:44 Differential diagnosis: anxiety, dehydration, abnormal EKG, electrolyte abnormality, sb4 pneumonia. Data reviewed: vital signs, nurses notes, lab test result(s), EKG, radiologic studies, and as a result, I will discharge patient. Counseling: I had a detailed discussion with the patient and/or guardian regarding the historical points, exam findings, and any diagnostic results supporting the discharge/admit diagnosis, lab results, radiology results, the need for outpatient follow up, for definitive care, to return to the emergency department if symptoms worsen or persist or if there are any questions or concerns that arise at home. 09/26 13:19 Order name: Basic Metabolic Panel; Complete Time: 15:14 cm10 09/26 13:19 Order name: CBC with Diff; Complete Time: 15:03 cm10 09/26 13:19 Order name: D-Dimer; Complete Time: 15:08 cm10 09/26 13:19 Order name: LFT's; Complete Time: 15:14 cm10 09/26 13:19 Order name: Magnesium; Complete Time: 15:14 cm10 09/26 13:19 Order name: NT PRO-BNP; Complete Time: 15:14 cm10 09/26 13:19 Order name: PT-INR; Complete Time: 15:08 cm10 09/26 13:19 Order name: Troponin HS; Complete Time: 15:14 cm10 09/26 13:19 Order name: TSH; Complete Time: 15:14 cm10 09/26 13:19 Order name: XRAY Chest (1 view) cm10 09/26 13:19 Order name: Cardiac monitoring; Complete Time: 14:42 cm10 09/26 13:19 Order name: EKG - Nurse/Tech; Complete Time: 14:42 cm10 09/26 13:19 Order name: IV Saline Lock; Complete Time: 14:42 cm10 09/26 13:19 Order name: Labs collected and sent; Complete Time: 14:42 cm10 09/26 13:19 Order name: O2 Per Protocol; Complete Time: 14:43 cm10 09/26 13:19 Order name: O2 Sat Monitoring; Complete Time: 14:43 cm10 EC:44 Rate is 66 beats/min. Rhythm is regular, Normal Sinus Rhythm. Left axis deviation sb4 noted. DC interval is normal at 172 msec. QRS interval is normal at 98 msec. QT interval is normal at 334 msec. No Q waves. T waves are Normal. No ST changes noted. Clinical impression: No evidence of ischemia. Interpreted by me. Reviewed by me. Administered Medications: 14:42 Not Given (Patient Refused): ativan0.5 mg IVP once aa5 14:46 Drug: NS 0.9% IV 1000 ml IV at 1000 ml once; to be given as a bolus over 60 minutes aa5 Route: IV; Rate: 1000 ml; Site: right antecubital; 15:55 Follow up: Response: No adverse reaction; IV Status: Completed infusion; IV Intake: ph 1000ml Disposition Summary: 09/26/24 15:45 Discharge Ordered Notes: Location: Home sb4 Problem: new sb4 Symptoms: have improved sb4 Condition: Stable sb4 Diagnosis - Dizziness and giddiness sb4 - Palpitations sb4 Followup: sb4 - With: Emergency Department - When: As needed - Reason: Trouble breathing, Worsening of condition Discharge Instructions: - Discharge Summary Sheet sb4 - Palpitations sb4 - Dizziness, [id number] sb4 Forms: - Patient Portal Instructions sb4 - Leadership Thank You Letter sb4 Addendum: 09/27/2024 16:28 Co-signature as Attending Physician, Jose Antonio Muniz MD I agree with the assessment and c martines plan of care. Signatures: Dispatcher [employer] Jose Antonio Stein MD MD cha Calderon, Audri, RN RN aa5 Marily Lyle, PAlKausC PA-C sb4 La Nena Fofana RN RN cm10 Ethel Montano RN ph Corrections: (The following items were deleted from the chart) 09/26 13:20 13:19 BASIC METABOLIC PANEL+C.LAB.BRZ ordered. EDMS EDMS 13:20 13:19 CBC+H.LAB.BRZ ordered. EDMS EDMS 13:20 13:19 D-DIMER+COAG.LAB.BRZ ordered. EDMS EDMS 13:20 13:19 HEPATIC FUNCTION+C.LAB.BRZ ordered. EDMS EDMS 13:20 13:19 MAGNESIUM+C.LAB.BRZ ordered. EDMS EDMS 13:20 13:19 PROBNP+C.LAB.BRZ ordered. EDMS EDMS 13:20 13:19 PROTIME (+INR)+COAG.LAB.BRZ ordered. EDMS EDMS 13:20 13:19 Troponin High Sensitivity+C.LAB.BRZ ordered. EDMS EDMS 13:20 13:19 THYROID STIMULAT HORMONE+C.LAB.BRZ ordered. EDMS EDMS 13:20 13:20 Chest Single View+RAD.RAD.BRZ ordered. EDMS EDMS 15:45 15:45 Chest pain, unspecified sb4 sb4
[2024-09-26 16:02] VITALS: O2SAT 98
[2024-09-26 16:04] VITALS: BP 118/78; TEMP 98
--- NOTE | 2024-09-26 20:51 | RAD REPORT ---
EXAMINATION: ONE VIEW CHEST XR CLINICAL INDICATION: Male, 29 years old.,CHEST PAIN TECHNIQUE: Frontal chest projection is submitted. Examination is limited by patient positioning and t echnique. COMPARISON: 09/11/2024 FINDINGS: The lungs are well inflated and clear. No pneumothorax or sizable effusion. The heart is normal in s ize. Mediastinal contours are unremarkable. IMPRESSION: No acute intrathoracic abnormalities.
--- NOTE | 2024-09-30 16:54 | EKG ---
Test Date: 2024-09-26 Test Time: 14:39:14 Emt P: MOHAMUD MEASUREMENT RESULTS: Intervals: Rate: 66 HI: 172 QRSD: 98 QT: 334 QTc: 350 [place]: P: 41 HI: 172 QRS: -38 T: 16 INTERPRETIVE STATEMENTS: Normal sinus rhythm Left axis deviation Abnormal ECG Compared to ECG 09/11/2024 00:25:23 No significant changes Electronically Signed On 09-30-24 16:49:29 CDT by Bird Youssef
== END 2024-09-26 15:55 | disposition home or self-care (01) ==
LOC: ER 12:59
DX: R42 Dizziness and giddiness (principal); R00.2 Palpitations; R53.1 Weakness; F41.9 Anxiety disorder, unspecified
CPT/HCPCS: 93005; 85025; 80048; 36415; 83735; 85610; 85379; 80076; 84443; 84484; 83880; 71045; 96360; 99285; J7030